=== PATIENT | female | born 1985 | race Two or more races ===

== ENCOUNTER 2019-06-07 02:46 | Emergency (ER) | payer SELFPAY ==
[~2019-06-07] VITALS: Ht 157.5 cm; Wt 40.8 kg
[2019-06-07 02:52] VITALS: BP 97/71
--- NOTE | 2019-06-07 02:59 | NUR ---
PT AMBULATED TO BED #9
[2019-06-07] MEDS ORDERED: NACL 0.9% 1,000 ML IV ONE (03:20)
[2019-06-07] MEDS ORDERED: MORPHINE SULFATE 2 MG/ML SYR IVP ONE (03:20)
--- NOTE | 2019-06-07 03:20 | NUR ---
34 YEAR OLD FEMALE COMPLAINS OF DIFFUSE ABDOMINAL PAIN X 7 HOURS. PATIENT STATES THAT SHE HAS SOME NAUSEA BUT NO VOMITTING. PAIN IS ON/OFF AND 10/10 ACHING PAIN WHEN PRESENT. BOWEL SOUNDS ACTIVE X4, TENDER, NONDISTENDED. AOX4, BREATHING EVEN AND UNLABORED, SKIN WARM AND DRY. BED IN LOWEST POSITION, LOCKED, BED RAIL UPX1. ERMD AWARE OF STATUS. PMH - DENIES ALLERGIES - NKA
[2019-06-07 03:35] LABS: APPEARANCE,URINE CLEAR (CLEAR); BILIRUBIN,URINE NEGATIVE (NEGATIVE); BLOOD, URINE NEGATIVE (NEGATIVE); COLOR,URINE YELLOW (YELLOW); LEUKOCYTE ESTERASE ,URINE NEGATIVE (NEGATIVE); NITRITE, URINE NEGATIVE (NEGATIVE); UGLUCOSE NEGATIVE (NEGATIVE)
[2019-06-07 03:42] LABS: BASOPHILS # (AUTO) 0.1 K/uL (0.00-0.22); BASOPHILS % (AUTO) 0.7 % (0.0-2.0); EOSINOPHILS # (AUTO) 0.1 K/uL (0-0.4); EOSINOPHILS % (AUTO) 0.4 % (0.0-4.0); HEMATOCRIT 38.4 % (36-48); HEMOGLOBIN 13.1 g/dL (12.0-16.0); LYMPHOCYTES # (AUTO) 1.3 K/uL (2.5-16.5); LYMPHOCYTES % (AUTO) 7.7 % (20.5-51.1); MEAN CORPUSCULAR HEMOGLOBIN 30 pg (27-31); MEAN CORPUSCULAR HGB CONC 34 g/dL (33-37); MEAN CORPUSCULAR VOLUME 86.6 fL (80-94); MONOCYTES # (AUTO) 0.4 K/uL (0.8-1.0); MONOCYTES % (AUTO) 2.6 % (1.7-9.3); NEUTROPHILS # (AUTO) 14.8 K/uL (1.8-7.7); NEUTROPHILS % (AUTO) 88.6 % (42.2-75.2); PLATELET COUNT (AUTO) 316 K/uL (140-450); RED BLOOD CELL COUNT(AUTO) 4.43 MIL/uL (4.20-5.40); RED CELL DISTRIBUTION WIDTH 12.9 % (11.6-13.7); WHITE BLOOD COUNT (AUTO) 16.8 K/uL (4.8-10.8)
[2019-06-07 03:51] LABS: ANION GAP 12.1 (8-16); CARBON DIOXIDE 27.8 mmol/L (21-32); CREATININE 0.8 mg/dL (0.6-1.3); POTASSIUM 3.9 mmol/L (3.5-5.1); TOTAL BILIRUBIN 0.7 mg/dL (0.0-1.0)
[2019-06-07 05:20] VITALS: BP 105/65
--- NOTE | 2019-06-07 05:20 | NUR ---
Patient discharged with v/s stable. Written and verbal after care instructions given and explained. Patient alert, oriented and verbalized understanding of instructions. Ambulatory with steady gait. All questions addressed prior to discharge. ID band removed. Patient advised to follow up with PMD. Rx of [facility] MILK OF MAGNESIA WAS given. Patient educated on indication of medication including possible reaction and side effects. Opportunity to ask questions provided and answered.
== END 2019-06-07 05:20 | disposition home or self-care (01) ==
LOC: MED 02:46
DX: K59.00 Constipation, unspecified (principal)
CPT/HCPCS: 36415; 74176; 80053; 81003; 82150; 83690; 85025; 96374; 99284; J2270; J7030